=== PATIENT | female | born 1940 | race Caucasian/White ===

== ENCOUNTER 2022-07-13 22:57 | Inpatient (IN) | payer OTHER ==
[2022-07-14 01:03] LABS: BASO % 1.9 % (0-2.0); EOS % 5.7 % (0-4.5); HEMATOCRIT 34.6 % (32.4-45.2); HEMOGLOBIN 11.5 GM/dL (10.7-15.3); LYMPH % 30.5 % (8-40); MCH 30.6 pg (25.7-33.7); MCHC 33.3 g/dl (32.0-36.0); MEAN CELL VOLUME 91.9 fl (80-96); MEAN PLT VOLUME 8.1 fl (7.5-11.1); MONO % 10.9 % (3.8-10.2); PLATELET COUNT 283 10^3/uL (134-434); RBC 3.77 M/mm3 (3.60-5.2); RDW 14.8 % (11.6-15.6); WHITE BLOOD COUNT 6.6 K/mm3 (4.0-10.0)
[2022-07-14 01:10] LABS: INR 0.99 (0.83-1.09); PROTHROMBIN TIME (PATIENT) 11.4 SEC (9.7-13.0)
[2022-07-14 01:12] LABS: ACTIVATED PTT 27.2 SECONDS (25.2-36.5)
[2022-07-14 01:22] LABS: CALCIUM 8.4 mg/dL (8.5-10.1)
[2022-07-14 01:23] LABS: ALBUMIN 3.4 g/dl (3.4-5.0); BLOOD UREA NITROGEN 29.1 mg/dL (7-18)
[2022-07-14 01:26] LABS: CREATININE 1.1 mg/dL (0.55-1.3)
[2022-07-14 01:27] LABS: BILIRUBIN,TOTAL 0.2 mg/dL (0.2-1); TOT PROT 6.3 g/dl (6.4-8.2)
[2022-07-14] MEDS ORDERED: ACETAMINOPHEN 1000 MG/100 ML BAG IVPB ONE (02:37)
[2022-07-14] MEDS ORDERED: SODIUM CHLORIDE 0.9% 500 ML INFUS.BAG IV ONE (02:38)
[2022-07-14] MEDS ORDERED: ACETAMINOPHEN INJECTION 100 ML IVPB ONE (03:25)
[2022-07-14] MEDS: SODIUM CHLORIDE 1,000 ML IV SCH (04:45)
[2022-07-14 05:23] LABS: EPI CELLS 12 /uL (0-25.1); HYALINE CASTS 0 /uL (0-3.1); PH,URINE 7.5 (5.0-8.0); URINE APPEARANCE CLEAR; URINE BACTERIA >9,000 /uL (0-1359); URINE BILIRUBIN NEGATIVE (NEGATIVE); URINE COLOR YELLOW; URINE GLUCOSE (UA) NEGATIVE (NEGATIVE); URINE KETONE NEGATIVE (NEGATIVE); URINE LEUK ESTERASE 1+ (NEGATIVE); URINE NITRITE POSITIVE (NEGATIVE); URINE PROTEIN NEGATIVE (NEGATIVE); URINE RBC 15 /uL (0-23.9); URINE UROBILINOGEN 0.2 mg/dL (0.2-1.0); URINE WBC 58 /uL (0-25.8)
[2022-07-14 05:55] VITALS: BMI 23.4
[2022-07-14] MEDS ORDERED: HEPARIN NA (PORCINE) 5,000 UNITS/ML 1ML VIAL ONE (06:38)
[2022-07-14] MEDS: HEPARIN NA (PORCINE) 5,000 UNITS/ML 1ML VIAL SQ SCH ×3 (06:43→21:37)
[2022-07-14 07:02] LABS: BASO % 1.3 % (0-2.0); EOS % 6.5 % (0-4.5); HEMOGLOBIN 11.1 GM/dL (10.7-15.3); LYMPH % 36.1 % (8-40); MCHC 32.7 g/dl (32.0-36.0); MEAN CELL VOLUME 91.9 fl (80-96); MEAN PLT VOLUME 8.4 fl (7.5-11.1); MONO % 9.8 % (3.8-10.2); NEUT % 46.3 % (42.8-82.8); PLATELET COUNT 290 10^3/uL (134-434); RDW 14.6 % (11.6-15.6); WHITE BLOOD COUNT 5.7 K/mm3 (4.0-10.0)
[2022-07-14 07:16] LABS: CALCIUM 8.4 mg/dL (8.5-10.1)
[2022-07-14 07:17] LABS: MAGNESIUM 2.3 mg/dL (1.8-2.4)
[2022-07-14 07:19] LABS: ALBUMIN 3.4 g/dl (3.4-5.0); BLOOD UREA NITROGEN 27.7 mg/dL (7-18)
[2022-07-14 07:22] LABS: PHOSPHOROUS 3.6 mg/dL (2.5-4.9); TOT PROT 6.2 g/dl (6.4-8.2)
[2022-07-14 07:23] LABS: BILIRUBIN,TOTAL 0.2 mg/dL (0.2-1)
[2022-07-14] MEDS ORDERED: PATIENT'S OWN MEDICATION (NON-FORMULARY) (Meloxicam [Meloxicam] 15 MG Tablet) PO SCH (10:00)
[2022-07-14] MEDS ORDERED: FAMOTIDINE 20 MG TABLET PO SCH (10:00)
[2022-07-14] MEDS ORDERED: SODIUM ZIRCONIUM CYCLOSILICATE (LOKELMA) 5 GM PACKET ONE (10:23)
[2022-07-14] MEDS ORDERED: ACETAMINOPHEN 325 MG TABLET (FP) ONE (10:24)
[2022-07-14] MEDS ORDERED: LISINOPRIL 20 MG TABLET ONE (10:24)
[2022-07-14] MEDS ORDERED: FAMOTIDINE 20 MG TABLET ONE (10:24)
[2022-07-14] MEDS ORDERED: SERTRALINE HCL 50 MG TABLET (FP) ONE (10:25)
[2022-07-14] MEDS ORDERED: CEFTRIAXONE 1 GM/50 ML BAG ONE (10:25)
[2022-07-14] MEDS: ACETAMINOPHEN 325 MG TABLET (FP) PO SCH (10:39)
[2022-07-14] MEDS: SODIUM ZIRCONIUM CYCLOSILICATE (LOKELMA) 5 GM PACKET PO SCH (10:39)
[2022-07-14] MEDS: CEFTRIAXONE 1 GM in DEXTROSE 5%-WATER - 50 ML IVPB SCH (10:39)
[2022-07-14] MEDS: LISINOPRIL 20 MG TABLET PO SCH (10:39)
[2022-07-14] MEDS: SERTRALINE HCL 50 MG TABLET (FP) PO SCH (10:40)
[2022-07-14] MEDS: MEMANTINE HCL 10 MG TABLET (FP) PO SCH ×2 (13:09→21:38)
[2022-07-14] MEDS: NALTREXONE HCL 50 MG TABLET PO SCH (13:09)
[2022-07-14] MEDS ORDERED: QUEtiapine FUMARATE 25 MG TABLET PO ONE (15:12)
[2022-07-14] MEDS ORDERED: QUEtiapine FUMARATE 25 MG TABLET ONE (15:42)
[2022-07-14] MEDS ORDERED: HALOPERIDOL LACTATE 5 MG/ML IM ONE ×2 (15:52→16:57)
[2022-07-14] MEDS ORDERED: HALOPERIDOL LACTATE 5 MG/ML ONE ×2 (15:54→17:33)
[2022-07-14] MEDS ORDERED: LIDOCAINE 5% TOPICAL PATCH ONE (17:35)
[2022-07-14] MEDS: LIDOCAINE 5% TOPICAL PATCH TP SCH (17:40)
[2022-07-14] MEDS: LORazepam 2 MG/ML SDV VIAL IVPUSH PRN (17:40)
[2022-07-14] MEDS: LIDOCAINE PATCH REMOVAL MC SCH (21:37)
[2022-07-14] MEDS ORDERED: QUEtiapine FUMARATE 25 MG TABLET PO SCH (22:00)
[2022-07-15] MEDS: LORazepam 2 MG/ML SDV VIAL IVPUSH PRN (00:31)
[2022-07-15] MEDS: SODIUM CHLORIDE 1,000 ML IV SCH (05:01)
[2022-07-15] MEDS: HEPARIN NA (PORCINE) 5,000 UNITS/ML 1ML VIAL SQ SCH ×3 (05:02→22:24)
[2022-07-15 08:43] VITALS: RESP 18
[2022-07-15 09:16] LABS: BASO % 0.9 % (0-2.0); EOS % 0.7 % (0-4.5); HEMATOCRIT 39.2 % (32.4-45.2); HEMOGLOBIN 12.5 GM/dL (10.7-15.3); LYMPH % 22.1 % (8-40); MCH 29.6 pg (25.7-33.7); MEAN CELL VOLUME 92.4 fl (80-96); MEAN PLT VOLUME 8.7 fl (7.5-11.1); MONO % 9.6 % (3.8-10.2); NEUT % 66.7 % (42.8-82.8); PLATELET COUNT 341 10^3/uL (134-434); RBC 4.24 M/mm3 (3.60-5.2); RDW 14.6 % (11.6-15.6); WHITE BLOOD COUNT 8.5 K/mm3 (4.0-10.0)
[2022-07-15 09:52] LABS: BLOOD UREA NITROGEN 15.9 mg/dL (7-18)
[2022-07-15 09:53] LABS: CALCIUM 9.4 mg/dL (8.5-10.1); MAGNESIUM 2.1 mg/dL (1.8-2.4)
[2022-07-15 09:58] LABS: BILIRUBIN,TOTAL 0.5 mg/dL (0.2-1); TOT PROT 7.3 g/dl (6.4-8.2)
[2022-07-15] MEDS ORDERED: cefTRIAXone SODIUM 1 GM VIAL ONE (10:09)
[2022-07-15] MEDS: LIDOCAINE 5% TOPICAL PATCH TP SCH (10:14)
[2022-07-15] MEDS: CEFTRIAXONE 1 GM in DEXTROSE 5%-WATER - 50 ML IVPB SCH (10:14)
[2022-07-15] MEDS: SODIUM ZIRCONIUM CYCLOSILICATE (LOKELMA) 5 GM PACKET PO SCH (10:14)
[2022-07-15] MEDS: MEMANTINE HCL 10 MG TABLET (FP) PO SCH ×2 (10:15→22:24)
[2022-07-15] MEDS: FAMOTIDINE 20 MG TABLET PO SCH (10:15)
[2022-07-15] MEDS: NALTREXONE HCL 50 MG TABLET PO SCH (10:15)
[2022-07-15] MEDS: LISINOPRIL 20 MG TABLET PO SCH (10:15)
[2022-07-15] MEDS: MULTIVITAMINS (DAILY MVI) TABLET (FP) PO SCH (10:15)
[2022-07-15] MEDS: SERTRALINE HCL 50 MG TABLET (FP) PO SCH (10:15)
[2022-07-15] MEDS: ACETAMINOPHEN 325 MG TABLET (FP) PO SCH (10:16)
[2022-07-15] MEDS: FOLIC ACID 1 MG TABLET (FP) PO SCH (10:16)
[2022-07-15] MEDS: RIVASTIGMINE 4.6 MG/24 HOURS TRANSDERMAL PATCH TD SCH (10:17)
[2022-07-15] MEDS ORDERED: THIAMINE HCL 100 MG TABLET (FP) PO SCH (22:00)
[2022-07-15] MEDS ORDERED: TEMAZEPAM 15 MG CAPSULE PO SCH (22:00)
[2022-07-15] MEDS: LIDOCAINE PATCH REMOVAL MC SCH (22:27)
[2022-07-16] MEDS: SODIUM CHLORIDE 1,000 ML IV SCH (05:21)
[2022-07-16] MEDS: HEPARIN NA (PORCINE) 5,000 UNITS/ML 1ML VIAL SQ SCH (05:21)
[2022-07-16 08:28] LABS: EOS % 2.8 % (0-4.5); HEMOGLOBIN 12.3 GM/dL (10.7-15.3); LYMPH % 23.6 % (8-40); MCH 29.5 pg (25.7-33.7); MCHC 32.4 g/dl (32.0-36.0); MEAN PLT VOLUME 8.6 fl (7.5-11.1); MONO % 9.1 % (3.8-10.2); NEUT % 63.5 % (42.8-82.8); PLATELET COUNT 320 10^3/uL (134-434); RBC 4.18 M/mm3 (3.60-5.2)
[2022-07-16 08:50] LABS: CALCIUM 8.4 mg/dL (8.5-10.1)
[2022-07-16 08:51] LABS: ALBUMIN 3.4 g/dl (3.4-5.0); BLOOD UREA NITROGEN 15.4 mg/dL (7-18); MAGNESIUM 2.1 mg/dL (1.8-2.4)
[2022-07-16 08:54] LABS: CREATININE 0.8 mg/dL (0.55-1.3)
[2022-07-16 08:56] LABS: BILIRUBIN,TOTAL 0.4 mg/dL (0.2-1); TOT PROT 6.3 g/dl (6.4-8.2)
[2022-07-16] MEDS: CEFTRIAXONE 1 GM in DEXTROSE 5%-WATER - 50 ML IVPB SCH (10:34)
[2022-07-16] MEDS: SERTRALINE HCL 50 MG TABLET (FP) PO SCH (10:35)
[2022-07-16] MEDS: LISINOPRIL 20 MG TABLET PO SCH (10:36)
[2022-07-16] MEDS: MULTIVITAMINS (DAILY MVI) TABLET (FP) PO SCH (10:36)
[2022-07-16] MEDS: MEMANTINE HCL 10 MG TABLET (FP) PO SCH (10:36)
[2022-07-16] MEDS: ACETAMINOPHEN 325 MG TABLET (FP) PO SCH (10:36)
[2022-07-16] MEDS: FAMOTIDINE 20 MG TABLET PO SCH (10:36)
[2022-07-16] MEDS: FOLIC ACID 1 MG TABLET (FP) PO SCH (10:36)
[2022-07-16] MEDS: SODIUM ZIRCONIUM CYCLOSILICATE (LOKELMA) 5 GM PACKET PO SCH (10:39)
[2022-07-16] MEDS: RIVASTIGMINE 4.6 MG/24 HOURS TRANSDERMAL PATCH TD SCH (10:39)
[2022-07-16] MEDS: NALTREXONE HCL 50 MG TABLET PO SCH (10:39)
[2022-07-16] MEDS: LIDOCAINE 5% TOPICAL PATCH TP SCH (10:47)
[2022-07-16 13:47] VITALS: BP 161/91; PULSE 101; TEMP 98
== END 2022-07-16 15:00 | disposition home or self-care (01) | DRG 690 ==
LOC: JER 22:57 → JERBED 07-14 00:08 → UNDOADMOB 07-14 00:08 → INTOOBSV 07-14 04:32 → OBSVTOIN 07-14 04:32 → JERBED 07-14 07:20 → J6S 07-14 18:11 → OBSVTOIN 07-15 18:36
PROVIDERS: ADMIT Internal Medicine; ATTEND Nurse Practitioner Acute Care
DX: N39.0 Urinary tract infection, site not specified (principal); F05 Delirium due to known physiological condition; R55 Syncope and collapse; G30.9 Alzheimer's disease, unspecified; F02.80 Dementia in other diseases classified elsewhere, unspecified severity, without behavioral disturbance, psychotic disturbance, mood disturbance, and anxiety; I10 Essential (primary) hypertension; E78.5 Hyperlipidemia, unspecified; K21.9 Gastro-esophageal reflux disease without esophagitis; F41.8 Other specified anxiety disorders; B96.20 Unspecified Escherichia coli [E. coli] as the cause of diseases classified elsewhere
CPT/HCPCS: 36415; 70450-TC; 71045-TC-FY; 72125-TC; 72170-TC-FY; 73502-TC-LT-FY; 80053; 80061; 81003; 83735; 84100; 84439; 84443; 84484; 85025; 85610; 85730; 87086; 87186; 93005; 93010; 93306-TC; 93880-TC; 97116-GP; 97162-GP; 99285-25; C9803-CS; G0378; J1644; U0003; U0005